=== PATIENT | male | born 1990 | race Caucasian/White ===

== ENCOUNTER 2017-08-28 10:54 | Emergency (ER) | payer OTHER | END 2017-08-28 11:40 | disposition home or self-care (01) | LOC: M ED 10:54 | DX: S63.642A Sprain of metacarpophalangeal joint of left thumb, initial encounter (principal); X50.0XXA Overexertion from strenuous movement or load, initial encounter; Y92.89 Other specified places as the place of occurrence of the external cause | CPT/HCPCS: 73130 ==